=== PATIENT | female | born 1950 | race Caucasian/White ===

== ENCOUNTER 2018-10-20 16:26 | Outpatient (CLI) | payer OTHER ==
--- NOTE | 2018-10-20 17:12 | RAD ---
CHEST TWO VIEW 10/20/18 HISTORY: Bronchitis. COMPARISON: Radiograph 03/12/14. FINDINGS: The lungs are clear. No pneumothorax or effusion. The cardiac silhouette and mediastinal contours are within normal limits. IMPRESSION: No acute intrathoracic abnormality. POS: [facility]
== END 2018-10-20 16:27 | disposition home or self-care (01) ==
LOC: BICRAD 16:26
PROVIDERS: ATTEND Family Medicine
DX: J40 Bronchitis, not specified as acute or chronic (principal)
CPT/HCPCS: 71046

== ENCOUNTER 2020-01-31 07:38 | Inpatient (IN) | payer MEDICARE ==
[2020-01-31] MEDS ORDERED: Aspirin Chewable 81 MG TAB ONE (07:56)
[2020-01-31] MEDS ORDERED: Nitroglycerin 0.4 MG TAB 1 EACH ONE (07:56)
[2020-01-31] MEDS ORDERED: Heparin 25,000 units/D5W 500 ML ONE (08:00)
[2020-01-31] MEDS ORDERED: Heparin 1,000 UNITS/ML VIAL ONE (08:00)
[2020-01-31] MEDS ORDERED: Heparin 10,000 UNITS/1 ML VIAL ONE (08:01)
[2020-01-31 08:11] LABS: #Basophils 0.1 thou/uL (0.0-0.2); #Eosinphils 0.5 thou/uL (0.0-0.7); #Lymphocytes 3.2 thou/uL (1.20-3.40); #Monocytes 0.7 thou/uL (0.11-0.59); #Neutrophils 5.8 thou/uL (1.40-6.50); %Basophils 1.1 % (0.0-1.0); %Eosinophils 4.9 % (0.0-10.0); %Monocytes 6.9 % (0.0-10.0); %Neutrophils 56.1 % (42.0-75.0); Hemoglobin 13.8 g/dL (12.0-16.0); Mean Corpuscular HGB CONC 31.5 g/dL (32.0-36.0); Mean Corpuscular Hemoglobin 28.7 pg (27.0-31.0); Mean Corpuscular Volume 90.9 fL (78.0-98.0); Mean Platelet Volume 8.9 fL (7.4-10.4); Platelet Count 300 thou/uL (130-400); RBC Distribution Width 11.6 % (11.5-14.5); White Blood Cell (WBC) Count 10.2 thou/uL (4.8-10.8)
--- NOTE | 2020-01-31 08:17 | RAD ---
CHEST 1 VIEW: Date: 01/31/2020 HISTORY: Chest pain. COMPARISON: None. FINDINGS: Lungs are clear. No pneumothorax or effusion. Cardiac silhouette and mediastinal contours are within normal limits. No acute osseous abnormality. There is increased cardiophrenic fat bilaterally. IMPRESSION: No acute intrathoracic abnormality. POS: [facility]
[2020-01-31] MEDS ORDERED: Midazolam HCl 2 mg/2 ml Vial ONE (08:32)
[2020-01-31] MEDS ORDERED: Fentanyl 100 MCG/2 ML VIAL ONE (08:32)
[2020-01-31 08:37] LABS: ALT (SGPT) 30 U/L (8-55); AST (SGOT) 31 U/L (5-34); Albumin 3.8 g/dL (3.4-4.8); Alkaline Phosphatase 128 U/L (40-110); Anion Gap 13 mmol/L (10-20); BUN (Urea Nitrogen) 18 mg/dL (9.8-20.1); Bilirubin, Total 0.3 mg/dL (0.2-1.2); Calc. Creatinine Clearance 0 mL/min (70-130); Calcium 9.2 mg/dL (7.8-10.44); Carbon Dioxide 27 mmol/L (23-31); Chloride 102 mmol/L (98-107); Estimated GFR-MDRD 81; Globulin 3.1 g/dL (2.4-3.5); Glucose 130 mg/dL (83-110); Lipase 31 U/L (8-78); Potassium 3.3 mmol/L (3.5-5.1); Protein, Total 6.9 g/dL (6.0-8.3); Sodium 139 mmol/L (136-145)
[2020-01-31] MEDS ORDERED: Adenosine 6 MG/2 ML VIAL ONE (08:39)
[2020-01-31] MEDS ORDERED: Nitroglycerin 100MG/250ML BOT 250 ML ONE ×2 (08:39→08:42)
[2020-01-31] MEDS ORDERED: Verapamil 5 MG/2 ML VIAL ONE (08:39)
[2020-01-31] MEDS ORDERED: Iopamidol 370 76% 100 ML VIAL ONE (08:48)
[2020-01-31] MEDS ORDERED: Iopamidol 370 76% 50 ML VIAL FS ONE (08:48)
[2020-01-31] MEDS ORDERED: Albumin 5% 500 ML ONE (09:01)
[2020-01-31] MEDS ORDERED: Fentanyl 250 MCG/5 ML VIAL ONE ×2 (09:06)
[2020-01-31] MEDS ORDERED: Midazolam HCl 5 mg/5 ml Vial ONE (09:07)
[2020-01-31 09:10] LABS: CKMB 7.8 ng/mL (0-6.6)
[2020-01-31] MEDS ORDERED: Heparin 10,000 UNITS/1 ML VIAL 30,000 UNITS in Sodium Chloride 0.9% 1,000 ML FS SCH (09:15)
[2020-01-31] MEDS ORDERED: Lidocaine 2% PF 5 ML VIAL ONE (09:16)
[2020-01-31] MEDS ORDERED: Aminocaproic Acid 5 GM/20 ML VIAL ONE (09:16)
[2020-01-31] MEDS ORDERED: Sodium Bicarb 50 MEQ/50 ML Abboject 8.4% SYRINGE ONE (09:16)
[2020-01-31] MEDS ORDERED: Vecuronium 10 MG VIAL ONE (09:16)
[2020-01-31] MEDS ORDERED: Cardioplegic Soln 1,000 ML BAG ONE (09:16)
[2020-01-31] MEDS ORDERED: Thrombin 5000 UNITS/5 ML VIAL ONE (09:16)
[2020-01-31] MEDS ORDERED: Heparin 5,000 UNITS/ML VIAL ONE (09:16)
[2020-01-31] MEDS ORDERED: Magnesium Sulfate 1 GM/2 ML VIAL ONE (09:16)
[2020-01-31] MEDS ORDERED: Heparin 30,000 units/30 ml VIAL ONE (09:16)
[2020-01-31] MEDS ORDERED: Potassium Chloride 60 MEQ/30 ML VIAL ONE (09:16)
[2020-01-31] MEDS ORDERED: Rocuronium Bromide 10 MG/ML (10ML VIAL) ONE (09:16)
[2020-01-31] MEDS ORDERED: Calcium Chloride 1 GM/10 ML Abboject SYRINGE ONE (09:16)
[2020-01-31] MEDS ORDERED: Papaverine 60 MG/2 ML VIAL ONE (09:16)
[2020-01-31] MEDS ORDERED: PROPOFOL 200 MG/20 ML VIAL ONE (09:16)
[2020-01-31] MEDS ORDERED: Protamine Sulfate 250 MG/25 ML VIAL ONE (09:16)
[2020-01-31] MEDS ORDERED: Norepinephrine 4 MG/4 ML VIAL ONE (09:25)
[2020-01-31] MEDS ORDERED: Nitroglycerin 50 MG/250 ML BOT 250 ML ONE (09:25)
[2020-01-31] MEDS ORDERED: Ketamine 50 MG/ML (10ML VIAL) ONE (09:34)
--- NOTE | 2020-01-31 09:36 | CON ---
DATE OF CONSULTATION: 01/31/2020 CHIEF COMPLAINT: Chest pain, acute myocardial infarction. HISTORY OF PRESENT ILLNESS: Ms. Antonio is a very pleasant 69-year-old woman with no previous cardiac history, who recently presented with chest pressure, neck and jaw pain. This began this morning. She states she did not feel right. She presented to the emergency room where she was found to have ST-segment elevation noted inferiorly. PAST MEDICAL HISTORY: Osteoarthritis. ALLERGIES: CIPRO. MEDICATIONS: None. SOCIAL HISTORY: She is currently . REVIEW OF SYSTEMS: A 10-point review of systems is reviewed and is as above, otherwise negative. PHYSICAL EXAMINATION: GENERAL: Patient is a pleasant female who is in no acute distress. The patient appears their stated age. VITAL SIGNS: Blood pressure 110/70, pulse 80, and respirations 20. NEUROLOGIC: The patient is alert and oriented x3 with no focal neurologic deficits. HEENT: Sclerae without icterus. Mouth has moist mucous membranes with normal pallor. NECK: No JVD. Carotid upstroke brisk. No bruits bilaterally. LUNGS: Clear to auscultation with unlabored respirations. BACK: No scoliosis or kyphosis. CARDIAC: Regular rate and rhythm with normal S1 and S2. No S3 or S4 noted. No significant rubs, murmurs, thrills, or gallops noted throughout the precordium. PMI is not displaced. There is no parasternal heave. ABDOMEN: Soft, nontender, nondistended. No peritoneal signs present. No hepatosplenomegaly. No abnormal striae. EXTREMITIES: 2+ femoral and 2+ dorsalis pedis pulses. No cyanosis, clubbing, or edema. SKIN: No gross abnormalities. PERTINENT LABS: Pending. DIAGNOSTIC STUDIES: EKG shows normal sinus rhythm, ST-segment elevation noted inferiorly. IMPRESSION: Acute myocardial infarction. RECOMMENDATIONS: At this point, we recommend urgent coronary angiography plus PCI. I discussed procedure in full detail with Ms. Antonio. Risks included not limited to the following: I discussed the procedure in full detail with the patient. The risks of the procedure were also discussed. The risks of the procedure include but are not limited to the following: , stroke, [place], need for emergency surgery, loss of limb, bleeding, and infection, as well as a reaction to the dye causing kidney failure and needing long-term dialysis. I also discussed the risks of PCI to include all of the above including coronary dissection and perforation in addition to acute stent thrombosis and restenosis. All questions about the procedure were answered. Given the above, the patient agreed to proceed with coronary angiography and possible PCI. Also, discussed drug coated versus nondrug-coated stent placement. She prefers drug-coated stent placement despite may be needing any surgery later in the year. The patient was continued to have mild discomfort. Further recommendations pending the above. Job ID: [id number]
--- NOTE | 2020-01-31 09:47 | CON ---
DATE OF CONSULTATION: 01/31/2020 HISTORY OF PRESENT ILLNESS: This is a 69-year-old female who began experiencing some neck and chest pressure earlier this morning, associated with shortness of breath. She used her inhaler due to history of asthma. However, she has continued to feel a pressure in her chest and presented to the emergency room. In the emergency room, she was noted to have some inferior ST elevation with a troponin of 0.26 and was taken to the clay processing labourer where she was found to have a subtotal right coronary occlusion with slow flow, an ostial 80% LAD lesion and severe circumflex disease. PAST MEDICAL HISTORY: Includes hypertension. She denies dyslipidemia, although has had cholesterol elevations as high as 280 last year. PAST SURGICAL HISTORY: Includes left knee surgery, bilateral wrist surgeries, and breast biopsy. Additional surgical procedures; remote urethral dilation, cystoscopy, tonsillectomy, , and hysterectomy. SOCIAL HISTORY: She is a retired teacher. She is . She is a nonsmoker. MEDICATIONS: Include: 1. Prilosec 20 a day inhaler. 2. Amlodipine 5 a day. 3. Amitriptyline 25 to 50 mg nightly. ALLERGIES: TO CIPRO AND BACTRIM. PHYSICAL EXAMINATION: GENERAL: Alert, cooperative lady, in no distress. VITAL SIGNS: She has a blood pressure of 140, heart rate of 80. She appears overweight. NECK: No carotid bruits. LUNGS: Clear to auscultation. CARDIAC: No murmurs. Irregular rhythm. ABDOMEN: Obese, nontender. EXTREMITIES: Noted no obesity with palpable pedal and radial pulses. PLAN: At this time, for emergency CAB to the right coronary artery, circumflex, LAD, and possibly diagonal. I have spoken with the patient and and informed consent has been obtained. Job ID: [id number]
[2020-01-31] MEDS ORDERED: Insulin Regular 300 UNITS/3 ML VIAL ONE (10:22)
[2020-01-31] MEDS ORDERED: Dexmedetomidine 200 MCG/2 ML VIAL ONE (11:17)
[2020-01-31] MEDS ORDERED: Morphine 2 MG/ML SYRINGE SLOW IVP PRN (14:07)
[2020-01-31] MEDS ORDERED: Nitroglycerin 50 MG/250 ML BOT 250 ML IVPB PRN (14:07)
[2020-01-31] MEDS ORDERED: niCARdipine 25 MG in Sodium Chloride 0.9% 250 ML 240 ML IVPB PRN (14:07)
[2020-01-31] MEDS ORDERED: Bisacodyl 5 MG TAB PO PRN (14:07)
[2020-01-31] MEDS ORDERED: Hetastarch 6% 500 ML 500 ML IVPB PRN (14:07)
[2020-01-31] MEDS ORDERED: DOPamine 400 MG/D5W 250 ML 250 ML IVPB PRN (14:07)
[2020-01-31] MEDS ORDERED: Fentanyl 100 MCG/2 ML VIAL SLOW IVP PRN ×2 (14:07)
[2020-01-31] MEDS ORDERED: Mag-Al 1200 mg/1200 mg/30 ML UDCUP PO PRN (14:07)
[2020-01-31] MEDS ORDERED: Ondansetron PF 4 MG/2 ML Vial IVP PRN (14:07)
[2020-01-31] MEDS ORDERED: Guaifenesin DM 100-10/5 ML UDCUP PO PRN (14:07)
[2020-01-31] MEDS ORDERED: Post-Op Insulin Drip Protocol IVPB ONE (14:07)
[2020-01-31] MEDS ORDERED: Acetaminophen 325 MG TAB PO PRN (14:07)
[2020-01-31] MEDS ORDERED: Norepinephrine 8 MG/0.9% NS 250 ML IVPB PRN (14:07)
[2020-01-31] MEDS ORDERED: hydrALAZINE 20 MG/ML VIAL SLOW IVP PRN (14:07)
[2020-01-31] MEDS ORDERED: Bisacodyl 10 MG SUPP PR PRN (14:07)
[2020-01-31] MEDS ORDERED: Promethazine HCl 25 MG/ML VIAL IM PRN (14:07)
[2020-01-31] MEDS ORDERED: Dextrose 50% Abboject 50 ML SYRINGE SLOW IVP PRN (14:15)
[2020-01-31] MEDS ORDERED: Insulin Regular 300 UNITS/3 ML VIAL SC PRN (14:15)
[2020-01-31] MEDS ORDERED: HUMULIN R 100 UNITS in Sodium Chloride 0.9% 100 ML IVPB SCH (14:15)
[2020-01-31] MEDS ORDERED: Dextrose 5% in Water 1,000 ML IV PRN (14:15)
[2020-01-31 14:30] LABS: Actual Bicarbonate (HCO3a) 19.2 mEq/L (22-28); Base Excess (BEa) -4.8 mEq/L (-2.0 to +3.0); CO2 Tension 32.2 mmHg (35.0-45.0); Calcium, Ionized 1.15 mmol/L (1.12-1.30); Carboxyhemoglobin (COHb) 0.2 gm% (0.0-3.0); Hemoglobin (Hb) 11.6 g/dL (12.0-16.0); O2 Tension (PaO2) 88.2 mmHg (> 70.0); Potassium - ABG Lab 3.84 mmol/L (3.70-5.30); pH, Arterial 7.39 (7.35-7.45)
[2020-01-31] MEDS ORDERED: Magnesium 2 GM/50 ML 2 GM in Premix Bag 1 BAG IVPB SCH (14:30)
[2020-01-31 14:31] LABS: Puncture Site ALINE
[2020-01-31] MEDS: Sodium Chloride 0.9% 1,000 ML IV SCH ×2 (14:37→23:01)
[2020-01-31 14:41] LABS: Hemoglobin 11.3 g/dL (12.0-16.0); Mean Corpuscular HGB CONC 32.8 g/dL (32.0-36.0); Mean Corpuscular Volume 91.3 fL (78.0-98.0); Mean Platelet Volume 8.9 fL (7.4-10.4); Platelet Count 190 thou/uL (130-400); RBC Distribution Width 11.6 % (11.5-14.5); Red Blood Cell (RBC) Count 3.76 mill/uL (4.20-5.40); White Blood Cell (WBC) Count 22.2 thou/uL (4.8-10.8)
[2020-01-31 14:47] LABS: INR-International Normal Ratio 1.2; PTT 29.5 SEC (22.9-36.1); Prothrombin Time 15.3 SEC (12.0-14.7)
[2020-01-31 14:54] LABS: Band 17 % (5-11); Eosinophils 1 % (0-10); Lymphocytes 12 % (21-51); MDiff Complete? YES; Monocytes 2 % (0-10); Neutrophil 68 % (42-75); Platelet Morphology Comment Appears Adequate; RBC Morphology Normal
[2020-01-31 15:11] LABS: Anion Gap 10 mmol/L (10-20); BUN (Urea Nitrogen) 13 mg/dL (9.8-20.1); Calc. Creatinine Clearance 0 mL/min (70-130); Calcium 7.8 mg/dL (7.8-10.44); Carbon Dioxide 22 mmol/L (23-31); Chloride 110 mmol/L (98-107); Estimated GFR-MDRD Greater than 90; Glucose 167 mg/dL (83-110); Potassium 3.9 mmol/L (3.5-5.1); Sodium 138 mmol/L (136-145)
--- NOTE | 2020-01-31 15:39 | RAD ---
PORTABLE CHEST 1 VIEW: DATE: 01/31/2020. TIME: 2:26 PM. HISTORY: Respiratory failure, post open heart surgery. COMPARISON: Earlier exam of 7:57 a.m. from the same date. FINDINGS/IMPRESSION: Interval changes of median sternotomy are seen. There is an endotracheal tube with tip just below th e level of the clavicular heads. A right subclavian central line has been placed with tip in the pro jection of the right atrium. Mediastinal drain has been placed. The heart size is stable. No lobar consolidation, pneumothoraces, simona pulmonary edema, or large effusions are seen. POS: [facility]
[2020-01-31] MEDS: Potassium Chloride 20 MEQ/100 ML PREMIX BAG IVPB PRN (16:08)
[2020-01-31] MEDS ORDERED: Norepinephrine 8 MG in Dextrose 5% in Water 242 ML IVPB PRN (17:16)
[2020-01-31] MEDS: CEFAZOLIN 2 GM in Premix Bag 1 BAG IVPB SCH (17:53)
[2020-01-31] MEDS: Ketorolac Tromethamine 30 MG/ML VIAL IVP SCH ×2 (17:54→23:02)
[2020-01-31 20:09] LABS: Hemoglobin 12.3 g/dL (12.0-16.0)
[2020-01-31 20:23] LABS: Potassium 4.2 mmol/L (3.5-5.1)
[2020-01-31] MEDS ORDERED: Famotidine/PF 20 mg/2ml Vial SLOW IVP SCH (21:00)
[2020-01-31] MEDS ORDERED: Simvastatin 20 MG TAB PO SCH (21:00)
[2020-02-01] MEDS: CEFAZOLIN 2 GM in Premix Bag 1 BAG IVPB SCH (02:09)
[2020-02-01 03:31] LABS: #Basophils 0.1 thou/uL (0.0-0.2); #Monocytes 1.3 thou/uL (0.11-0.59); #Neutrophils 12.5 thou/uL (1.40-6.50); %Basophils 0.4 % (0.0-1.0); %Eosinophils 0.1 % (0.0-10.0); %Lymphocytes 12.5 % (21.0-51.0); %Monocytes 8.1 % (0.0-10.0); %Neutrophils 78.8 % (42.0-75.0); Hemoglobin 10.6 g/dL (12.0-16.0); Mean Corpuscular HGB CONC 33.3 g/dL (32.0-36.0); Mean Corpuscular Hemoglobin 30.5 pg (27.0-31.0); Mean Corpuscular Volume 91.5 fL (78.0-98.0); Mean Platelet Volume 9.2 fL (7.4-10.4); Platelet Count 214 thou/uL (130-400); RBC Distribution Width 11.7 % (11.5-14.5); Red Blood Cell (RBC) Count 3.48 mill/uL (4.20-5.40); White Blood Cell (WBC) Count 15.9 thou/uL (4.8-10.8)
[2020-02-01 03:50] LABS: Anion Gap 13 mmol/L (10-20); BUN (Urea Nitrogen) 15 mg/dL (9.8-20.1); Calc. Creatinine Clearance 84 mL/min (70-130); Carbon Dioxide 22 mmol/L (23-31); Chloride 110 mmol/L (98-107); Estimated GFR-MDRD 81; Glucose 133 mg/dL (83-110); Potassium 3.8 mmol/L (3.5-5.1); Sodium 141 mmol/L (136-145)
[2020-02-01] MEDS: Ketorolac Tromethamine 30 MG/ML VIAL IVP SCH ×3 (05:07→18:29)
[2020-02-01] MEDS: HYDROcodone/Acetaminophen 5/325 mg Tablet PO PRN ×2 (05:09→15:50)
[2020-02-01] MEDS: Potassium Chloride 20 MEQ/100 ML PREMIX BAG IVPB PRN (05:13)
--- NOTE | 2020-02-01 07:11 | PRG ---
DATE OF SERVICE: 02/01/2020 The patient overnight was stable on no infusions with blood pressure running anywhere from 95 to 125, heart rate is 90 and sinus rhythm. Chest tube output is about 240 mL since surgery. Her chest x-ray shows a left effusion, small. Laboratory values; creatinine is 0.71, her hemoglobin is 10.6 and her platelet count is 214,000. She is sitting in a chair this morning and concerned about her allergies. Her lungs are clear to auscultation bilaterally. At this time, the patient appears to be doing well and we will start statin therapy and low-dose beta-marlon will be added depending on her blood pressure status. I have ordered Claritin and Prilosec at her request for her symptomatic allergies. I have also discussed the need to begin physical therapy today and she reminds me that she does use a cane due to arthritis in her legs. Job ID: [id number]
--- NOTE | 2020-02-01 07:16 | OP ---
DATE OF PROCEDURE: 01/31/2020 PREOPERATIVE DIAGNOSIS: Coronary artery disease status post acute myocardial infarction. PROCEDURES PERFORMED: Emergency coronary artery bypass graft x3; good quality saphenous vein to a 1.5 mm main right coronary artery distally, good quality saphenous vein to a 1.25 mm OM3, good quality left internal mammary artery to a 1.5 mm LAD. DIRECTOR OF CORPORATE RESPONSIBILITY: Genaro Casillas MD TRANSFUSION: None. DESCRIPTION OF PROCEDURE: After adequate anesthesia had been obtained, the patient was prepped and draped. I did an endovascular vein harvest of the right greater saphenous vein and after it was prepared, it was not felt that there was a long enough usable segment to do grafts. For this reason, an open harvest on the left thigh was performed. Following this, I performed a median sternotomy harvesting the left internal mammary artery without entering the pleura. The patient was heparinized and mammary divided distally and passed posterior to the thymus gland. Aorta was somewhat enlarged and after aortic and right atrial cannulation, the patient was placed on cardiopulmonary bypass. The vessels were inspected for grafting. The aorta was crossclamped and a liter of cold blood cardioplegia was given through the aortic root. Right coronary distal anastomosis was completed, passing a 1.5 mm probe prior to tying the suture line. The OM3 was opened and an end-to-side anastomosis completed here. Following which, the LAD was opened proximally and the left internal mammary artery anastomosed here. The cross-clamp was removed and the partial occluding clamp placed, and 2 vein anastomoses were performed on the aortic root and marked with rings. The patient was then weaned from cardiopulmonary bypass. Cannulas were removed and protamine was given systemically. Mediastinal drains x2 were placed following which the sternum was reapproximated with #7 interrupted wire using vancomycin paste on the sternal edges, platelet rich blood and platelet poor plasma. Subcutaneous tissue and skin were closed in layers. Job ID: [id number]
[2020-02-01] MEDS ORDERED: Ondansetron PF 4 MG/2 ML Vial IVP PRN (07:43)
[2020-02-01] MEDS ORDERED: Nitroglycerin 0.4 MG TAB (25 Tab Bottle) SL PRN (07:43)
[2020-02-01] MEDS ORDERED: Mag-Al 1200 mg/1200 mg/30 ML UDCUP PO PRN (07:43)
[2020-02-01] MEDS ORDERED: Bisacodyl 5 MG TAB PO PRN (07:43)
[2020-02-01] MEDS ORDERED: Mineral Oil ENEMA PR PRN (07:43)
[2020-02-01] MEDS ORDERED: Guaifenesin DM 100-10/5 ML UDCUP PO PRN (07:43)
[2020-02-01] MEDS ORDERED: Bisacodyl 10 MG SUPP PR PRN (07:43)
[2020-02-01] MEDS ORDERED: Milk Of Magnesia 30 ML UDCUP PO PRN (07:43)
--- NOTE | 2020-02-01 08:56 | RAD ---
PORTABLE CHEST: DATE: 02/01/2020. PROVIDED CLINICAL HISTORY: Post open heart. FINDINGS: Comparison 01/31/2020. Interval extubation. Additional significant interval change with respect to t he prior examination is not apparent. IMPRESSION: As above. POS: [facility]
[2020-02-01] MEDS ORDERED: Fluticasone Propionate HFA 110 MCG AER INH SCH (09:00)
[2020-02-01] MEDS ORDERED: Aspirin 325 MG TAB PO SCH (09:00)
[2020-02-01] MEDS: Aspirin 325 mg Enteric Coated Tablet PO SCH (09:49)
[2020-02-01] MEDS: Polyethylene Glycol 3350 17 GM Packet PO SCH ×2 (09:49→10:01)
[2020-02-01] MEDS: Mometasone 100 MCG/PUFF (1 INHALER) INH SCH ×3 (09:50→19:30)
--- NOTE | 2020-02-01 14:09 | PRG ---
DATE OF SERVICE: 02/01/2020 SUBJECTIVE: Ms. Antonio is doing very well. She is seen post bypass. She is extubated, sitting up in a chair. No current complaints except for a chest soreness. OBJECTIVE: VITAL SIGNS: Blood pressure 127/60, pulse 81, and temperature 98.4. LUNGS: Clear to auscultation. HEART: Regular rate and rhythm. ABDOMEN: Soft, nontender, nondistended. EXTREMITIES: No edema. PERTINENT LABORATORY DATA: Hemoglobin 10.6. Creatinine 0.71, chloride 110, CO2 22. IMPRESSION: 1. Acute myocardial infarction. 2. Severe coronary artery disease. 3. Status post bypass surgery. RECOMMENDATIONS: 1. Incentive spirometer and physical therapy. 2. Continue aspirin. 3. Add low-dose beta-marlon therapy and statin therapy. Job ID: [id number]
--- NOTE | 2020-02-01 16:03 | EKG ---
Test Reason : POST CABG Blood Pressure : / mmHG Vent. Rate : 076 BPM Atrial Rate : 076 BPM P-R Int : 220 ms QRS Dur : 076 ms QT Int : 492 ms P-R-T Axes : 046 -16 010 degrees QTc Int : 553 ms Sinus rhythm with 1st degree A-V block Low voltage QRS Prolonged QT Abnormal ECG Confirmed by HENRRY BROWN ([id number]) on 02/01/2020 4:03:08 PM Referred By: RICHARD Confirmed By:HENRRY BROWN
[2020-02-01] MEDS: Amitriptyline HCl 100 MG TAB PO SCH (22:02)
[2020-02-01] MEDS: Metoprolol Tartrate 25 MG TAB PO SCH (22:03)
[2020-02-01] MEDS: Atorvastatin Calcium 10 MG TAB PO SCH (22:04)
[2020-02-01] MEDS: Sodium Chloride 0.9% 10 ML ONE ×2 (22:04→22:05)
[2020-02-02] MEDS ORDERED: Sodium Chloride 0.9% 10 ML ONE ×2 (00:11→05:41)
[2020-02-02] MEDS: Ketorolac Tromethamine 30 MG/ML VIAL IVP SCH ×5 (00:15→23:37)
[2020-02-02 05:40] LABS: #Eosinphils 0.3 thou/uL (0.0-0.7); #Lymphocytes 2.2 thou/uL (1.20-3.40); #Monocytes 1.1 thou/uL (0.11-0.59); #Neutrophils 5.3 thou/uL (1.40-6.50); %Basophils 0.3 % (0.0-1.0); %Eosinophils 3.1 % (0.0-10.0); %Lymphocytes 24.6 % (21.0-51.0); %Monocytes 12.2 % (0.0-10.0); %Neutrophils 59.8 % (42.0-75.0); Hemoglobin 9.6 g/dL (12.0-16.0); Mean Corpuscular HGB CONC 33.2 g/dL (32.0-36.0); Mean Corpuscular Hemoglobin 30.6 pg (27.0-31.0); Mean Platelet Volume 9.8 fL (7.4-10.4); Platelet Count 175 thou/uL (130-400); Red Blood Cell (RBC) Count 3.15 mill/uL (4.20-5.40); White Blood Cell (WBC) Count 8.9 thou/uL (4.8-10.8)
[2020-02-02 05:56] LABS: Anion Gap 11 mmol/L (10-20); BUN (Urea Nitrogen) 16 mg/dL (9.8-20.1); Calc. Creatinine Clearance 95 mL/min (70-130); Calcium 8.3 mg/dL (7.8-10.44); Carbon Dioxide 23 mmol/L (23-31); Chloride 107 mmol/L (98-107); Estimated GFR-MDRD Greater than 90; Glucose 115 mg/dL (83-110); Sodium 137 mmol/L (136-145)
[2020-02-02] MEDS: Mometasone 100 MCG/PUFF (1 INHALER) INH SCH ×2 (06:38→18:57)
[2020-02-02] MEDS: Metoprolol Tartrate 25 MG TAB PO SCH (09:38)
[2020-02-02] MEDS: Polyethylene Glycol 3350 17 GM Packet PO SCH (09:39)
[2020-02-02] MEDS: Furosemide 40 MG TAB PO SCH (09:39)
[2020-02-02] MEDS: Aspirin 325 mg Enteric Coated Tablet PO SCH (09:39)
[2020-02-02] MEDS ORDERED: Amiodarone 150 MG in Dextrose 5% in Water 100 ML IVPB SCH (10:15)
[2020-02-02] MEDS ORDERED: Amiodarone 450 MG in Dextrose 5% in Water 250 ML IVPB SCH (10:15)
[2020-02-02] MEDS: Loratadine 10 MG TAB PO PRN ×2 (10:32→22:20)
[2020-02-02] MEDS ORDERED: Amiodarone 200 MG TAB PO SCH (12:00)
[2020-02-02] MEDS: Amitriptyline HCl 100 MG TAB PO SCH (22:19)
[2020-02-02] MEDS: Amiodarone 200 MG TAB PO SCH (22:19)
[2020-02-02] MEDS: Atorvastatin Calcium 10 MG TAB PO SCH (22:20)
[2020-02-03] MEDS: Ketorolac Tromethamine 30 MG/ML VIAL IVP SCH ×3 (06:09→17:40)
[2020-02-03] MEDS: Aspirin 325 mg Enteric Coated Tablet PO SCH (07:35)
[2020-02-03] MEDS: Amiodarone 200 MG TAB PO SCH ×2 (07:35→20:38)
[2020-02-03] MEDS: Furosemide 40 MG TAB PO SCH (07:36)
[2020-02-03] MEDS: Meloxicam 15 MG TAB PO SCH (07:36)
[2020-02-03] MEDS: Polyethylene Glycol 3350 17 GM Packet PO SCH (07:37)
[2020-02-03] MEDS: Mometasone 100 MCG/PUFF (1 INHALER) INH SCH ×2 (07:38→20:02)
[2020-02-03] MEDS: Loratadine 10 MG TAB PO PRN ×2 (15:22→22:46)
[2020-02-03] MEDS: Atorvastatin Calcium 10 MG TAB PO SCH (20:38)
[2020-02-03] MEDS: HYDROcodone/Acetaminophen 5/325 mg Tablet PO PRN (22:46)
[2020-02-04] MEDS: Mometasone 100 MCG/PUFF (1 INHALER) INH SCH ×2 (06:59→19:09)
[2020-02-04] MEDS: Meloxicam 15 MG TAB PO SCH (09:14)
[2020-02-04] MEDS: Aspirin 325 mg Enteric Coated Tablet PO SCH (09:14)
[2020-02-04] MEDS: Amiodarone 200 MG TAB PO SCH ×2 (09:14→20:31)
[2020-02-04] MEDS: HYDROcodone/Acetaminophen 5/325 mg Tablet PO PRN ×2 (09:15→20:30)
[2020-02-04] MEDS: Loratadine 10 MG TAB PO PRN ×2 (09:15→20:30)
[2020-02-04] MEDS: Furosemide 40 MG TAB PO SCH (09:16)
[2020-02-04] MEDS: Polyethylene Glycol 3350 17 GM Packet PO SCH (09:16)
--- NOTE | 2020-02-04 18:38 | PRG ---
DATE OF SERVICE: 02/04/2020 SUBJECTIVE: Ms. Antonio is doing well. No current complaints. She is slowly ambulating. She is using incentive spirometry. OBJECTIVE: VITAL SIGNS: Blood pressure 126/60, pulse 97, temperature 98.5. LUNGS: Clear to auscultation. HEART: Regular rate and rhythm. ABDOMEN: Soft, nontender, nondistended. EXTREMITIES: No edema. PERTINENT LABORATORY DATA: Hemoglobin 9.6. IMPRESSION: 1. Acute myocardial infarction. 2. Severe coronary artery disease. 3. Status post bypass surgery. RECOMMENDATIONS: 1. Incentive spirometry and physical therapy. 2. Amiodarone 400 mg p.o. b.i.d. and we will reduce to 400 mg subcu q.a.m. 3. Add low-dose beta-marlon therapy. 4. On atorvastatin and aspirin. Job ID: [id number]
[2020-02-04] MEDS: Atorvastatin Calcium 10 MG TAB PO SCH (20:31)
[2020-02-05] MEDS: HYDROcodone/Acetaminophen 5/325 mg Tablet PO PRN ×2 (04:04→09:22)
[2020-02-05] MEDS: Mometasone 100 MCG/PUFF (1 INHALER) INH SCH (07:04)
[2020-02-05] MEDS: Meloxicam 15 MG TAB PO SCH (09:20)
[2020-02-05] MEDS: Aspirin 325 mg Enteric Coated Tablet PO SCH (09:20)
[2020-02-05] MEDS: Polyethylene Glycol 3350 17 GM Packet PO SCH (09:20)
[2020-02-05] MEDS: Furosemide 40 MG TAB PO SCH (09:20)
[2020-02-05] MEDS: Amiodarone 200 MG TAB PO SCH (09:21)
[2020-02-05] MEDS: Loratadine 10 MG TAB PO PRN (09:23)
[2020-02-05 11:37] VITALS: BP 137/84; TEMP 98.4
--- NOTE | 2020-02-05 15:23 | PRG ---
DATE OF SERVICE: 02/05/2020 SUBJECTIVE: Ms. Antonio is doing well. No current complaints. She is ready for discharge. OBJECTIVE: VITAL SIGNS: Blood pressure 137/54, pulse 86, and temperature 98.4 LUNGS: Clear to auscultation. HEART: Regular rate and rhythm. ABDOMEN: Soft, nontender, nondistended. EXTREMITIES: No edema. IMPRESSION: 1. Acute myocardial infarction. 2. Status post bypass surgery. RECOMMENDATIONS: Ms. Antonio did have a brief episode of atrial fibrillation and multifocal atrial tachycardia during her hospitalization after bypass. I would recommend 400 mg amiodarone x1 month only. We will also recommend a 3-week event recorder to assess for dysrhythmias. We will also add low-dose Toprol-XL 25 mg one p.o. q.h.s. Continue aspirin and statin therapy. Plan is to follow up with Ms. Antonio in the next one week as a telemedicine visit. Job ID: [id number]
[2020-02-06 01:12] LABS: Analyzer IN Cardio OR; Base Excess (BEa) -2.8 mEq/L (-2.0 to +3.0); CO2 Tension 38.4 mmHg (35.0-45.0); Calcium, Ionized 1.11 mmol/L (1.12-1.30); Carboxyhemoglobin (COHb) 0.3 gm% (0.0-3.0); Hemoglobin (Hb) 12.5 g/dL (12.0-16.0); O2 Tension (PaO2) 204.4 mmHg (> 70.0); Potassium - ABG Lab 3.31 mmol/L (3.70-5.30); pH, Arterial 7.38 (7.35-7.45)
[2020-02-06 01:12] LABS: Actual Bicarbonate (HCO3a) 22.8 mEq/L (22-28); Analyzer IN Cardio OR; Base Excess (BEa) -0.7 mEq/L (-2.0 to +3.0); CO2 Tension 34.1 mmHg (35.0-45.0); Calcium, Ionized 1.12 mmol/L (1.12-1.30); Carboxyhemoglobin (COHb) 0.4 gm% (0.0-3.0); Hemoglobin (Hb) 13.4 g/dL (12.0-16.0); O2 Tension (PaO2) 205.2 mmHg (> 70.0); Potassium - ABG Lab 3.51 mmol/L (3.70-5.30); pH, Arterial 7.44 (7.35-7.45)
[2020-02-06 01:13] LABS: Actual Bicarbonate (HCO3a) 23.5 mEq/L (22-28); Analyzer IN Cardio OR; Base Excess (BEa) -1.5 mEq/L (-2.0 to +3.0); CO2 Tension 40.5 mmHg (35.0-45.0); Carboxyhemoglobin (COHb) 0.3 gm% (0.0-3.0); Hemoglobin (Hb) 8.2 g/dL (12.0-16.0); O2 Tension (PaO2) 397.9 mmHg (> 70.0); Potassium - ABG Lab 4.23 mmol/L (3.70-5.30); pH, Arterial 7.38 (7.35-7.45)
[2020-02-06 01:13] LABS: Actual Bicarbonate (HCO3v) 26 mEq/L (22-28); Analyzer IN Cardio OR; Base Excess 0.2 mEq/L (-2.0 to +3.0); Calcium, Ionized 0.97 mmol/L (1.16-1.32); Chloride (ABG LAB) 108 mmol/L (98-106); Hemoglobin (Hb) 8.2 g/dL (11.7-16.1); Potassium - ABG Lab 3.97 mmol/L (3.70-5.30); Sodium 135.6 mmol/L (133-146); pH (venous) 7.36 (7.32-7.43)
[2020-02-06 01:13] LABS: Actual Bicarbonate (HCO3a) 22.8 mEq/L (22-28); Analyzer IN Cardio OR; Base Excess (BEa) -0.8 mEq/L (-2.0 to +3.0); CO2 Tension 32.5 mmHg (35.0-45.0); Calcium, Ionized 1.18 mmol/L (1.12-1.30); Carboxyhemoglobin (COHb) 0.1 gm% (0.0-3.0); Hemoglobin (Hb) 7.8 g/dL (12.0-16.0); O2 Tension (PaO2) 419.8 mmHg (> 70.0); Potassium - ABG Lab 4.03 mmol/L (3.70-5.30); pH, Arterial 7.46 (7.35-7.45)
[2020-02-06 01:13] LABS: Actual Bicarbonate (HCO3a) 25.3 mEq/L (22-28); Analyzer IN Cardio OR; Base Excess (BEa) 0.8 mEq/L (-2.0 to +3.0); CO2 Tension 40.2 mmHg (35.0-45.0); Calcium, Ionized 0.99 mmol/L (1.12-1.30); Carboxyhemoglobin (COHb) 0.3 gm% (0.0-3.0); O2 Tension (PaO2) 463.7 mmHg (> 70.0); Potassium - ABG Lab 4.17 mmol/L (3.70-5.30); pH, Arterial 7.42 (7.35-7.45)
[2020-02-06 01:14] LABS: Puncture Site ALINE
[2020-02-06 01:14] LABS: Puncture Site ALINE
[2020-02-06 01:15] LABS: Puncture Site ALINE
[2020-02-06 01:15] LABS: Puncture Site ALINE
[2020-02-06 01:16] LABS: Puncture Site ALINE
--- NOTE | 2020-02-06 06:50 | DIS ---
DATE OF ADMISSION: 01/31/2020 DATE OF DISCHARGE: 02/05/2020 HOSPITAL COURSE: This is a 69-year-old female who presented to the hospital with an acute MD. She was taken emergently to the cardiac shrimp pond laborer by Dr. Paz, where she was found to have severe coronary disease, not amenable to stenting. The right coronary artery was subtotally occluded with slow flow and the LAD had a very proximal lesion. The patient was taken to the operating room emergently from the shrimp pond laborer where she underwent 3-vessel bypass grafting to the main right coronary artery distally and OM-3, which was a small vessel and an LAD with the mammary artery. She required an open vein harvest of the right groin and an endovascular vein harvest of the left greater saphenous vein to obtain suitable vein for two grafts with probably no suitable vein remaining. Postoperatively, she did have a short run of nonsustained ventricular tachycardia of about 15 beats in the ICU and then had a very short run of atrial fibrillation flutter postoperatively on day 2. She then remained in sinus rhythm with a good blood pressure. She will be discharged home on amiodarone 200 b.i.d. for 1 month and then switching to a low-dose beta marlon. She will also receive low-dose statin 10 mg a day, aspirin 1 a day. Her ambulation has not been much, but this was anticipated due to multiple musculoskeletal complaints prior to hospitalization. She will be discharged home to arrange for outpatient cardiac rehab. Her incisions are healing nicely. Her weight is about 164 which is higher than her stated weight of 155 on admission and so she will be also discharged on one week's worth of additional Lasix 40 mg a day. Discharge and followup instructions have been given. Job ID: [id number]
[2020-02-06] MEDS ORDERED: Amiodarone 200 MG TAB PO SCH (09:00)
== END 2020-02-05 15:50 | disposition home or self-care (01) | DRG 234 ==
LOC: ERS 07:38 → 2NO 08:14 → CCL 08:14 → CCU 14:06 → 2NO 02-01 08:46
PROVIDERS: ADMIT Internal Medicine Cardiovascular Disease; ATTEND Internal Medicine Cardiovascular Disease
PROC: 4A023N7 Measurement of Cardiac Sampling and Pressure, Left Heart, Percutaneous Approach (ICD-10-PCS; principal; 2020-01-31)
PROC: 02100Z9 Bypass Coronary Artery, One Artery from Left Internal Mammary, Open Approach (ICD-10-PCS; 2020-01-31)
PROC: 021109W Bypass Coronary Artery, Two Arteries from Aorta with Autologous Venous Tissue, Open Approach (ICD-10-PCS; 2020-01-31)
PROC: 06BQ4ZZ Excision of Left Saphenous Vein, Percutaneous Endoscopic Approach (ICD-10-PCS; 2020-01-31)
PROC: B2111ZZ Fluoroscopy of Multiple Coronary Arteries using Low Osmolar Contrast (ICD-10-PCS; 2020-01-31)
PROC: B2151ZZ Fluoroscopy of Left Heart using Low Osmolar Contrast (ICD-10-PCS; 2020-01-31)
PROC: 5A1221Z Performance of Cardiac Output, Continuous (ICD-10-PCS; 2020-01-31)
DX: I21.09 ST elevation (STEMI) myocardial infarction involving other coronary artery of anterior wall (principal); I10 Essential (primary) hypertension; I25.10 Atherosclerotic heart disease of native coronary artery without angina pectoris; I48.91 Unspecified atrial fibrillation; F41.9 Anxiety disorder, unspecified; E78.00 Pure hypercholesterolemia, unspecified; M19.90 Unspecified osteoarthritis, unspecified site; Z88.1 Allergy status to other antibiotic agents; Z79.01 Long term (current) use of anticoagulants; Z90.710 Acquired absence of both cervix and uterus; Z88.2 Allergy status to sulfonamides; Z88.8 Allergy status to other drugs, medicaments and biological substances
CPT/HCPCS: 36415; 36416; 71045; 76942; 80048; 80053; 82553; 82805; 83690; 83880; 84484; 85025; 85347; 85610; 85730; 86850; 86900; 86901; 93005; 93010; 93458; 93798; 94002; 94150; 96374; 96376; 99152; 99153; C1769; J0153; J0690; J1644; J1815; J1885; J2001; J2250; J2440; J2704; J2720; J3010; J3370; J3475; J3480; J7050; P9045; Q9967; S0017; S0028

== ENCOUNTER 2020-08-22 07:37 | Outpatient (CLI) | payer MEDICARE, OTHER ==
[2020-08-22 15:15] LABS: Hemoglobin 13.6 g/dL (12.0-16.0); Mean Corpuscular HGB CONC 31.3 G/DL (32.0-36.0); Mean Corpuscular Hemoglobin 29.4 PG (27.0-33.0); Mean Corpuscular Volume 94.2 fl (80.0-100.0); Mean Platelet Volume 10.9 fl (7.4-10.4); Platelet Count 334 10x3/uL (130-400); RBC Distribution Width 13.5 % (11.5-14.5); Red Blood Cell (RBC) Count 4.62 10x6/uL (3.90-5.20); White Blood Cell (WBC) Count 9.7 10x3/uL (4.5-11.0)
[2020-08-22 15:26] LABS: INR-International Normal Ratio 0.9; Prothrombin Time 9.9 sec (9.5-12.1)
[2020-08-22 15:35] LABS: Anion Gap 12 mmol/L (10-20); BUN (Urea Nitrogen) 16 mg/dL (9.8-20.1); Calc. Creatinine Clearance 0 mL/min (70-130); Calcium 9.2 mg/dL (7.8-10.44); Carbon Dioxide 29 mmol/L (23-31); Chloride 104 mmol/L (98-107); Glucose 112 mg/dL (83-110); Potassium 4.3 mmol/L (3.5-5.1); Sodium 141 mmol/L (136-145)
== END 2020-08-22 07:38 | disposition home or self-care (01) ==
LOC: LABBT 07:37
PROVIDERS: ATTEND Orthopaedic Surgery
DX: Z01.818 Encounter for other preprocedural examination (principal)
CPT/HCPCS: 80048; 85027; 85610; 87081

== ENCOUNTER 2020-08-27 10:39 | Inpatient (IN) | payer MEDICARE ==
[2020-08-26 10:57] VITALS: BMI 30.2
[~2020-08-27 10:39] MED LIST: Bupivacaine HCl 0.5%/Epinephrine 1:200,000/PF 30 ml Vial ONE; Dexamethasone 20 MG/5 ML VIAL ONE; Glycopyrrolate 0.2 MG/ML 5 ML SYRINGE ONE; Labetalol HCl 100 MG/20 ML VIAL ONE; Lidocaine 1% PF 5 ML VIAL ONE; Ondansetron PF 4 MG/2 ML Vial ONE; PROPOFOL 200 MG/20 ML VIAL ONE; Rocuronium Bromide 10 MG/ML (10ML VIAL) ONE; Ropivacaine 0.2% HCl/PF (40 MG/20 ML VIAL) ONE
[2020-08-27] MEDS ORDERED: Phenylephrine 10 MG/ML VIAL ONE (11:53)
[2020-08-27] MEDS ORDERED: Fentanyl 100 MCG/2 ML VIAL ONE ×3 (11:53→15:08)
[2020-08-27] MEDS ORDERED: Midazolam HCl 2 mg/2 ml Vial ONE (11:54)
[2020-08-27] MEDS ORDERED: Neomycin-Polymyxin 1 ML AMP ONE (13:08)
[2020-08-27] MEDS ORDERED: Fentanyl 100 MCG/2 ML VIAL IV PRN (13:12)
[2020-08-27] MEDS ORDERED: HYDROcodone/Acetaminophen 10/325 mg Tablet PO PRN (13:15)
[2020-08-27] MEDS ORDERED: Ondansetron PF 4 MG/2 ML Vial IVP PRN (13:15)
[2020-08-27] MEDS ORDERED: Promethazine HCl 25 MG/ML VIAL IM PRN ×2 (13:15→15:00)
[2020-08-27] MEDS ORDERED: Ropivacaine HCl/PF 250 ML in Premix Bag 1 BAG NERVE BLCK SCH (13:15)
[2020-08-27] MEDS ORDERED: traMADol HCl 50 MG TAB PO PRN ×2 (13:15)
[2020-08-27] MEDS ORDERED: Zolpidem Tartrate 5 MG TAB PO PRN ×2 (13:15→15:00)
[2020-08-27] MEDS ORDERED: SUGAMMADEX SODIUM 200 MG/2 ML VIAL ONE (13:33)
[2020-08-27] MEDS ORDERED: HYDROmorphone 2 MG/ML VIAL ONE (14:03)
[2020-08-27] MEDS ORDERED: Acetaminophen 325 MG TAB PO PRN (15:00)
[2020-08-27] MEDS ORDERED: diphenhydrAMINE 25 MG CAP PO PRN (15:00)
[2020-08-27] MEDS ORDERED: Morphine 4 MG/ML VIAL SLOW IVP PRN (15:00)
[2020-08-27] MEDS ORDERED: Morphine 2 MG/ML VIAL SLOW IVP PRN (15:00)
--- NOTE | 2020-08-27 15:23 | RAD ---
Exam:2 views left HISTORY: Left knee arthroplasty COMPARISON: None FINDINGS: Findings compatible with left knee arthroplasty. Expected postoperative changes. IMPRESSION: Left knee arthroplasty.
[2020-08-27] MEDS ORDERED: Albuterol Sulfate 2.5 mg/3 ml Neb NEB PRN (16:53)
--- NOTE | 2020-08-27 17:17 | OP ---
DATE OF PROCEDURE: 08/27/2020 PREOPERATIVE DIAGNOSIS: Severe arthritis, left knee. POSTOPERATIVE DIAGNOSIS: Severe arthritis, left knee. PROCEDURE PERFORMED: Left total knee replacement. ANESTHESIA: General. DESCRIPTION OF PROCEDURE: The patient had a block performed by Anesthesia prior to surgery. She was given preoperative IV antibiotics, taken to the operating room, placed in supine position. Satisfactory general anesthesia was performed. The left lower extremity was sterilely prepped and draped in usual fashion. After exsanguination, tourniquet at the proximal left thigh was raised to 250 mmHg. A longitudinal incision was made over the anterior aspect of the left knee. A medial parapatellar arthrotomy was performed. The patient was noted to have severe arthritis in the medial compartment as well as the patellofemoral joint and mild arthritic changes in the lateral compartment. The anterior cruciate ligament, medial and lateral menisci were excised and the distal aspect of the femur was cut, removing 10 mm at a 5-degree valgus angle. The proximal tibia was then cut, removing 4 mm off the most affected medial compartment. The proximal tibia was measured as a size 5 and the proximal tibia was then prepped for the finned base plate. The distal femur was measured as a size 5. The femur was then cut using the distal femoral cutting guide and the anterior, posterior, and chamfer cuts were made. All the excess spurring was removed from around the distal femur. The trial was inserted over the distal femur, had excellent fit and holes were made for the femoral stems. The trial tibial base plate was inserted along with 10 mm poly and this allowed for full extension of the knee with good flexion and good stability in both flexion and extension. The trials were removed and the undersurface of the patella was cut and then measured as a 32 mm diameter patella. Three holes were made for the patella. The knee joint was then copiously irrigated with antibiotic solution using the high-speed gunner mate. Methylmethacrylate was mixed and initially the proximal finned base plate, size 5 left was cemented into place. The 10 mm tibial insert was locked into the base plate. The nonporous size 5 left femoral component was cemented onto the distal femur. This was used instead of the bony ingrowth because the bone was quite osteoporotic and required the additional strength of the bone cement. Knee was placed into full extension. Excess methylmethacrylate was removed and the Tri-Peg 32 mm diameter patella was cemented into place. Cement was allowed to harden. The knee joint was copiously irrigated with Pulsavac again and again was checked for good stability and range of motion. The knee joint was then closed using #2 Vicryl for the retinacular tissue, 0 Vicryl for the fat and subcutaneous tissues, and skin was closed skin blas. Sterile dressing was applied. The tourniquet was released. The patient was awakened and transferred to recovery room in stable condition. ESTIMATED BLOOD LOSS: None. COMPLICATIONS: None. TOURNIQUET TIME: 67 minutes. Job ID: [id number]
[2020-08-27] MEDS: Ondansetron PF 4 MG/2 ML Vial IVP PRN (17:35)
[2020-08-27] MEDS: Ketorolac Tromethamine 30 MG/ML VIAL IVP SCH (17:41)
[2020-08-27] MEDS: Sodium Chloride 0.9% 1,000 ML IV SCH (17:42)
--- NOTE | 2020-08-27 19:41 | CON ---
DATE OF CONSULTATION: PRIMARY CARE PHYSICIAN: Felton Hernandez. CHIEF COMPLAINT: Left knee pain. HISTORY OF PRESENT ILLNESS: The patient is a 70-year-old female presented today for an elective total knee replacement with Dr. Son. We were consulted for medical management of this patient. She currently has no complaints. PAST MEDICAL HISTORY: Hypertension, hyperlipidemia, CAD, atrial fibrillation, CA, asthma induced by medications, arthritis. PAST SURGICAL HISTORY: Carotid endarterectomy, left knee arthroscopy, CABG. ALLERGIES: CIPRO, ERYTHROMYCIN, BACTRIM, CHLORHEXIDINE, AND ADHESIVES. MEDICATIONS: 1. Asmanex two puffs inhaled as needed. 2. Albuterol two puffs inhaled as needed. 3. Metoprolol succinate 25 mg p.o. q.a.m. 4. Aspirin 81 mg p.o. daily. 5. Atorvastatin 10 mg p.o. daily. 6. Prilosec OTC p.o. daily. 7. Meloxicam 15 mg p.o. daily. 8. Claritin 10 mg p.o. daily. SOCIAL HISTORY: The patient lives at home. Denies any drinking, smoking, or alcohol. FAMILY HISTORY: Noncontributory to this visit. REVIEW OF SYSTEMS: The patient complaining of nausea. All other review of systems negative. PHYSICAL EXAMINATION: VITAL SIGNS: Pulse 62, blood pressure 151/70, respiratory rate 16, temp 95.5. GENERAL: The patient is slightly hypertensive. No acute distress. HEENT: Head; atraumatic, normocephalic. Eyes, PERRLA. Extraocular muscles intact. RESPIRATORY: Clear to auscultation bilaterally. No rhonchi, no wheezes, no rales. CARDIOVASCULAR: Regular rate and rhythm. No murmurs, no rubs, no gallops. ABDOMEN: Bowel sounds normal. No distention. No guarding. EXTREMITIES: No edema. No cyanosis. Left knee wrapped in bandage with nerve block in place. PSYCH: Normal affect, normal behavior. LABS: Labs were completed on 08/22/2020. White blood cells 9.7, hemoglobin 13.6, hematocrit 43.5. Sodium 141, potassium 4.3, chloride 104, carbon dioxide 29, creatinine 0.75, GFR 76. IMPRESSION AND PLAN: The patient with a total knee replacement, consulted for medical management. The patient has a history of hypertension, hyperlipidemia, coronary artery disease, and atrial fibrillation. Preop EKG in the chart shows normal sinus rhythm at 74 beats per minute. The patient continued on her hypertensive medication by Dr. Son along with other home medications. We will continue to monitor vital signs q.4 hours and follow patient while in the hospital with any needs she may have. The patient is a full code currently. The patient has been discussed with Dr. Alexander. Job ID: [id number]
[2020-08-27] MEDS ORDERED: PROVENTIL INHALER 6.7 G (200 INHALATIONS) INH PRN (20:02)
[2020-08-27] MEDS: CEFAZOLIN 2 GM in Premix Bag 1 BAG IVPB SCH (20:10)
[2020-08-27] MEDS: Aspirin 81 mg Enteric Coated Tablet PO SCH (20:11)
[2020-08-27] MEDS: Atorvastatin Calcium 10 MG TAB PO SCH (20:11)
[2020-08-27] MEDS: Ferrous Gluconate 324 MG TAB PO SCH (20:11)
[2020-08-27] MEDS: Senokot S 8.6-50 MG TAB PO SCH (20:11)
[2020-08-28] MEDS: Sodium Chloride 0.9% 1,000 ML IV SCH ×3 (00:05→22:23)
[2020-08-28] MEDS: HYDROcodone/Acetaminophen 10/325 mg Tablet PO PRN (00:11)
[2020-08-28] MEDS: Ketorolac Tromethamine 30 MG/ML VIAL IVP SCH ×5 (00:11→22:25)
[2020-08-28] MEDS: CEFAZOLIN 2 GM in Premix Bag 1 BAG IVPB SCH (04:14)
[2020-08-28] MEDS: Ondansetron PF 4 MG/2 ML Vial IVP PRN (04:55)
[2020-08-28 05:57] LABS: #Lymphocytes 1.1 thou/uL (1.20-3.40); #Neutrophils 10.9 thou/uL (1.40-6.50); %Basophils 0.2 % (0.0-1.0); %Eosinophils 0.1 % (0.0-10.0); %Lymphocytes 8.3 % (21.0-51.0); %Monocytes 7.8 % (0.0-10.0); %Neutrophils 83.7 % (42.0-75.0); Hemoglobin 11.5 g/dL (12.0-16.0); Mean Corpuscular Hemoglobin 30.7 pg (27.0-31.0); Mean Corpuscular Volume 95.9 fL (78.0-98.0); Mean Platelet Volume 8.3 fL (7.4-10.4); Platelet Count 268 thou/uL (130-400); RBC Distribution Width 12.2 % (11.5-14.5); Red Blood Cell (RBC) Count 3.73 mill/uL (4.20-5.40)
[2020-08-28 06:17] LABS: Anion Gap 14 mmol/L (10-20); BUN (Urea Nitrogen) 18 mg/dL (9.8-20.1); Calc. Creatinine Clearance 72 mL/min (70-130); Calcium 8.9 mg/dL (7.8-10.44); Carbon Dioxide 25 mmol/L (23-31); Chloride 102 mmol/L (98-107); Estimated GFR-MDRD 73; Glucose 123 mg/dL (83-110); Potassium 4.5 mmol/L (3.5-5.1); Sodium 136 mmol/L (136-145)
[2020-08-28] MEDS ORDERED: Labetalol HCl 100 MG/20 ML VIAL SLOW IVP PRN (08:36)
[2020-08-28] MEDS: Senokot S 8.6-50 MG TAB PO SCH ×2 (08:48→20:23)
[2020-08-28] MEDS: Aspirin 81 mg Enteric Coated Tablet PO SCH ×2 (08:48→20:23)
[2020-08-28] MEDS: Multivitamin W/ Minerals 1 TAB PO SCH (08:49)
[2020-08-28] MEDS: Ferrous Gluconate 324 MG TAB PO SCH ×2 (08:49→20:23)
[2020-08-28] MEDS: Loratadine 10 MG TAB PO SCH (08:50)
--- NOTE | 2020-08-28 10:22 | PRG ---
DATE OF SERVICE: 08/28/2020 SUBJECTIVE: Ms. Antonio is 1-day status post left total knee replacement. The patient states that she had nausea and vomiting this morning. She has not worked with physical therapy yet. Overall, she feels that the block given by anesthesia is working fairly well. OBJECTIVE: The patient has been afebrile. Vital signs are stable. The left lower extremity has some numbness from the block, but otherwise it is neurovascularly intact. The patient is able to dorsiflex, plantar flex the ankle well, has good flexion-extension of the toes. Good peripheral pulses. LABORATORY DATA: Shows white count 13, hemoglobin 11.5, hematocrit 35.8. PLAN: The patient needs to work with physical therapy, to be able to demonstrate independence on getting in and out of bed and ambulating. She is requiring IV pain medication as well as IV antiemetics. She needs to stay in the hospital until she is much more stable, possible discharge tomorrow. Job ID: [id number]
[2020-08-28] MEDS ORDERED: Calcium Carbonate 500 MG ChewTAB PO PRN (11:39)
[2020-08-28] MEDS ORDERED: Mag-Al 1200 mg/1200 mg/30 ML UDCUP PO PRN (11:39)
[2020-08-28] MEDS ORDERED: Polyethylene Glycol 3350 17 GM Packet PO PRN (15:13)
--- NOTE | 2020-08-28 15:13 | PDOC.HOSPP ---
- Subjective Encounter Date: 08/28/20 Encounter Time: 10:00 Subjective: Patient seen and examined for medical management. Some heartburn. Denies any chest pain, palpitations, fever or chills. No other complaints. - Objective Vital Signs & Weight: Vital Signs (12 hours) Temp Pulse Resp BP Pulse Ox 08/28/20 11:44 96.8 F L 69 18 118/59 L 95 08/28/20 09:10 95 08/28/20 08:28 98.7 F 64 18 141/65 H 95 08/28/20 04:17 96.4 F L 66 16 127/61 94 L Weight Weight 155 lb I&O: 08/27/20 08/28/20 08/29/20 06:59 06:59 06:59 Intake Total 970 440 Output Total 200 Balance 770 440 Result Diagrams: 08/28/20 05:33 08/28/20 05:33 Radiology Reviewed by me: Yes (Knee x-rayreviewed) Hospitalist ROS - Review of Systems Respiratory: denies: cough, dry, shortness of breath, hemoptysis, SOB with excertion, pleuritic pain, sputum, wheezing, other Cardiovascular: denies: chest pain, palpitations, orthopnea, paroxysmal noc. dyspnea, edema, light headedness, other - Medication Medications: Active Medications Generic Name Dose Route Start Last Admin Trade Name Freq PRN Reason Stop Dose Admin Acetaminophen 650 mg 08/27/20 15:00 08/27/20 22:39 Acetaminophen 325 Mg Tab PO 650 mg Q4H PRN Administration Headache/Fever or Pain Hydrocodone Bitart/Acetaminophen 2 tab 08/27/20 13:15 08/28/20 00:11 Hydrocodone/Acetaminophen 10/325 Mg Tablet PO 2 tab Q4H PRN Administration PAIN (4-6) Aspirin 81 mg 08/27/20 21:00 08/28/20 08:48 Aspirin 81 Mg Enteric Coated Tablet PO 81 mg BID MARCO ANTONIO Administration Atorvastatin Calcium 10 mg 08/27/20 21:00 08/27/20 20:11 Atorvastatin Calcium 10 Mg Tab PO 10 mg HS MARCO ANTONIO Administration Ferrous Gluconate 324 mg 08/27/20 21:00 08/28/20 08:49 Ferrous Gluconate 324 Mg Tab PO 324 mg BID MARCO ANTONIO Administration Sodium Chloride 1,000 mls @ 100 mls/hr 08/27/20 15:00 08/28/20 11:10 Normal Saline 0.9% IV Not Given .Q10H MARCO ANTONIO Iron/Minerals/Multivitamins 1 tab 08/28/20 09:00 08/28/20 08:49 Multivitamin W/ Minerals 1 Tab PO 1 tab DAILY MARCO ANTONIO Administration Ketorolac Tromethamine 15 mg 08/27/20 18:00 08/28/20 11:19 Ketorolac Tromethamine 30 Mg/Ml Vial IVP 08/29/20 12:01 15 mg Q6HR MARCO ANTONIO Administration Loratadine 10 mg 08/28/20 09:00 08/28/20 08:50 Loratadine 10 Mg Tab PO 10 mg DAILY MARCO ANTONIO Administration Metoprolol Succinate 25 mg 08/28/20 09:00 08/28/20 08:48 Metoprolol Succinate Xl 25 Mg Tab PO 25 mg DAILY MARCO ANTONIO Administration Ondansetron HCl 4 mg 08/27/20 15:00 08/28/20 04:55 Ondansetron Pf 4 Mg/2 Ml Vial IVP 4 mg Q6H PRN Administration Nausea/Vomiting Pantoprazole Sodium 40 mg 08/28/20 09:00 08/28/20 08:49 Pantoprazole 40 Mg Tab PO 40 mg DAILY MARCO ANTONIO Administration Senna/Docusate Sodium 2 tab 08/27/20 21:00 08/28/20 08:48 Senokot S 8.6-50 Mg Tab PO Not Given BID MARCO ANTONIO Sodium Chloride 10 ml 08/27/20 21:00 08/28/20 08:50 Flush - Normal Saline 10 Ml Syringe IVF 10 ml Q12HR MARCO ANTONIO Administration - Exam General Appearance: NAD Heart: RRR, no gallops Respiratory: no wheezes, no ronchi Gastrointestinal: non-tender, non-distended Extremities: no cyanosis Neurological: no new deficit Hosp A/P - Plan DVT proph w/SCDs Hypertension Coronary artery disease status post CABG Hyperlipidemia Paroxysmal atrial fibrillation Mild intermittent asthma GERD Seasonal allergies History of carotid artery disease Degenerative joint disease CKD stage II Plan: Continue Lipitor, Toprol-XL 25 mg daily with PPIs. Add Maalox and Tums for heartburn. Continue Senokot-S. Continue albuterol inhaler as needed. Continue aspirin continue other medications as above. Continue physical therapy. Continue incentive spirometry. Continue supportive care. Pain control. Continue heart healthy diet
[2020-08-28] MEDS: Atorvastatin Calcium 10 MG TAB PO SCH (20:23)
[2020-08-29 05:22] LABS: Hemoglobin 9.6 g/dL (12.0-16.0); Mean Corpuscular HGB CONC 33.1 g/dL (32.0-36.0); Mean Corpuscular Hemoglobin 30.8 pg (27.0-31.0); Mean Corpuscular Volume 93.2 fL (78.0-98.0); Mean Platelet Volume 8.1 fL (7.4-10.4); Platelet Count 224 thou/uL (130-400); RBC Distribution Width 12.3 % (11.5-14.5); White Blood Cell (WBC) Count 8.9 thou/uL (4.8-10.8)
[2020-08-29] MEDS: Ketorolac Tromethamine 30 MG/ML VIAL IVP SCH ×2 (06:07→12:16)
[2020-08-29] MEDS: Sodium Chloride 0.9% 1,000 ML IV SCH ×2 (06:32→15:17)
[2020-08-29] MEDS: Multivitamin W/ Minerals 1 TAB PO SCH ×2 (08:22→08:32)
[2020-08-29] MEDS: Senokot S 8.6-50 MG TAB PO SCH (08:22)
[2020-08-29] MEDS: Ferrous Gluconate 324 MG TAB PO SCH (08:23)
[2020-08-29] MEDS: Loratadine 10 MG TAB PO SCH (08:23)
[2020-08-29] MEDS: Aspirin 81 mg Enteric Coated Tablet PO SCH (08:23)
[2020-08-29] MEDS: HYDROcodone/Acetaminophen 10/325 mg Tablet PO PRN (09:58)
--- NOTE | 2020-08-29 14:50 | PDOC.HOSPP ---
- Subjective Encounter Date: 08/29/20 Encounter Time: 08:30 Subjective: Patient seen and examined for medical management. Pain controlled. Denies any chest pain, shortness of breath or palpitations. No fever or chills. - Objective Vital Signs & Weight: Vital Signs (12 hours) Temp Pulse Resp BP Pulse Ox 08/29/20 12:15 96.4 F L 62 18 141/63 H 96 08/29/20 09:30 95 08/29/20 08:27 98.5 F 65 16 135/62 95 Weight Weight 155 lb I&O: 08/28/20 08/29/20 08/30/20 06:59 06:59 06:59 Intake Total 970 935 460 Output Total 200 Balance 770 935 460 Result Diagrams: 08/29/20 05:05 08/28/20 05:33 Hospitalist ROS - Review of Systems Cardiovascular: denies: chest pain, palpitations, orthopnea, paroxysmal noc. dyspnea, edema, light headedness, other Gastrointestinal: denies: nausea, vomiting, abdominal pain, diarrhea, constipation, melena, hematochezia, other - Medication Medications: Active Medications Generic Name Dose Route Start Last Admin Trade Name Freq PRN Reason Stop Dose Admin Acetaminophen 650 mg 08/27/20 15:00 08/27/20 22:39 Acetaminophen 325 Mg Tab PO 650 mg Q4H PRN Administration Headache/Fever or Pain Hydrocodone Bitart/Acetaminophen 1 tab 08/27/20 13:15 08/28/20 22:25 Hydrocodone/Acetaminophen 10/325 Mg Tablet PO 1 tab Q4H PRN Administration Pain (1-3) Hydrocodone Bitart/Acetaminophen 2 tab 08/27/20 13:15 08/29/20 09:58 Hydrocodone/Acetaminophen 10/325 Mg Tablet PO 2 tab Q4H PRN Administration PAIN (4-6) Aspirin 81 mg 08/27/20 21:00 08/29/20 08:23 Aspirin 81 Mg Enteric Coated Tablet PO 81 mg BID MARCO ANTONIO Administration Atorvastatin Calcium 10 mg 08/27/20 21:00 08/28/20 20:23 Atorvastatin Calcium 10 Mg Tab PO 10 mg HS MARCO ANTONIO Administration Ferrous Gluconate 324 mg 08/27/20 21:00 08/29/20 08:23 Ferrous Gluconate 324 Mg Tab PO 324 mg BID MARCO ANTONIO Administration Sodium Chloride 1,000 mls @ 100 mls/hr 08/27/20 15:00 08/29/20 06:32 Normal Saline 0.9% IV Not Given .Q10H MARCO ANTONIO Iron/Minerals/Multivitamins 1 tab 08/28/20 09:00 08/29/20 08:32 Multivitamin W/ Minerals 1 Tab PO 1 tab DAILY MARCO ANTONIO Administration Loratadine 10 mg 08/28/20 09:00 08/29/20 08:23 Loratadine 10 Mg Tab PO 10 mg DAILY MARCO ANTONIO Administration Metoprolol Succinate 25 mg 08/28/20 09:00 08/29/20 08:23 Metoprolol Succinate Xl 25 Mg Tab PO 25 mg DAILY MARCO ANTONIO Administration Ondansetron HCl 4 mg 08/27/20 15:00 08/28/20 04:55 Ondansetron Pf 4 Mg/2 Ml Vial IVP 4 mg Q6H PRN Administration Nausea/Vomiting Pantoprazole Sodium 40 mg 08/29/20 09:00 08/29/20 08:23 Pantoprazole 40 Mg Tab PO 40 mg DAILY MARCO ANTONIO Administration Senna/Docusate Sodium 2 tab 08/27/20 21:00 08/29/20 08:22 Senokot S 8.6-50 Mg Tab PO 2 tab BID MARCO ANTONIO Administration Sodium Chloride 10 ml 08/27/20 21:00 08/29/20 08:24 Flush - Normal Saline 10 Ml Syringe IVF 10 ml Q12HR MARCO ANTONIO Administration - Exam General Appearance: NAD Heart: RRR, no gallops Respiratory: no wheezes, no ronchi Gastrointestinal: soft, non-distended Extremities: no cyanosis Neurological: no new deficit Hosp A/P - Plan DVT proph w/SCDs Hypertension Coronary artery disease status post CABG Hyperlipidemia Paroxysmal atrial fibrillation Mild intermittent asthma GERD Seasonal allergies History of carotid artery disease Degenerative joint disease CKD stage II Plan: Continue PPIs. Continue Lipitor. Continue Toprol-XL and other medications as above. DVT prophylaxis. Continue incentive spirometer. Continue physical therapy.
[2020-08-29 16:41] VITALS: BP 117/59; TEMP 96.2
--- NOTE | 2020-08-29 18:08 | DIS ---
DATE OF ADMISSION: 08/27/2020 DATE OF DISCHARGE: 08/29/2020 HISTORY OF PRESENT ILLNESS: Please see admission history and physical. HOSPITAL COURSE: The patient was worked up medically prior to admission, found to be stable for surgery. On the day of admission, the patient was given perioperative IV antibiotics, taken to the operating room and under general anesthetic, underwent a left total knee replacement. The patient started physical therapy the following day and by the date of discharge, she was able to independently get out of bed and ambulate with a walker. The patient had an indwelling pain catheter performed by Anesthesia, which gave her good pain relief. The patient remained afebrile. Vital signs remained stable. Her laboratory showed that hemoglobin the day after surgery was 11.5 and second day was 9.6. The dressing was changed. The incision was healing well and the Aquacel was placed over the left knee incision. DISCHARGE DIAGNOSIS: Severe arthritis of left knee, requiring total knee replacement. DISCHARGE MEDICATION: The patient will continue with her previous home medication. She will take aspirin 81 mg daily and I wrote a prescription for Moss 10 one every 6 hours as needed for pain #40. FOLLOWUP: Follow up in my office in 2 weeks. Job ID: [id number]
== END 2020-08-29 16:50 | disposition home or self-care (01) | DRG 470 ==
LOC: SDC 10:39 → SJJU 15:00
PROVIDERS: ADMIT Orthopaedic Surgery; ATTEND Orthopaedic Surgery
PROC: 0SRD0J9 Replacement of Left Knee Joint with Synthetic Substitute, Cemented, Open Approach (ICD-10-PCS; principal; 2020-08-27)
DX: M17.12 Unilateral primary osteoarthritis, left knee (principal); E78.5 Hyperlipidemia, unspecified; I25.10 Atherosclerotic heart disease of native coronary artery without angina pectoris; N18.2 Chronic kidney disease, stage 2 (mild); K21.9 Gastro-esophageal reflux disease without esophagitis; I48.0 Paroxysmal atrial fibrillation; J45.20 Mild intermittent asthma, uncomplicated; I12.9 Hypertensive chronic kidney disease with stage 1 through stage 4 chronic kidney disease, or unspecified chronic kidney disease; M19.90 Unspecified osteoarthritis, unspecified site; Z88.1 Allergy status to other antibiotic agents; Z88.8 Allergy status to other drugs, medicaments and biological substances; Z95.1 Presence of aortocoronary bypass graft; Z79.82 Long term (current) use of aspirin; Z79.51 Long term (current) use of inhaled steroids; Z79.899 Other long term (current) drug therapy; I25.2 Old myocardial infarction; Z88.2 Allergy status to sulfonamides
CPT/HCPCS: 36415; 80048; 85027; C1713; C1776; J0690; J1100; J1170; J1885; J2250; J2370; J2405; J2704; J2795; J3010

== ENCOUNTER 2021-06-26 13:18 | Outpatient (CLI) | payer MEDICARE ==
[2021-06-26 14:44] LABS: #Basophils 0.1 10x3/uL (0.0-0.2); #Eosinphils 0.7 10x3/uL (0.0-0.5); #Monocytes 0.5 10x3/uL (0.0-1.1); %Eosinophils 8.8 % (0.0-6.0); %Lymphocytes 23.9 % (18.0-47.0); %Monocytes 6.1 % (0.0-10.0); Hemoglobin 13.8 g/dL (12.0-15.5); Mean Corpuscular Hemoglobin 28.2 pg (27.0-33.0); Mean Corpuscular Volume 88.1 fl (81.6-98.3); Mean Platelet Volume 11.1 fl (7.4-10.4); Platelet Count 365 10x3/uL (150-450); RBC Distribution Width 13.4 % (11.5-14.5); Red Blood Cell (RBC) Count 4.89 10x6/uL (3.90-5.03); White Blood Cell (WBC) Count 8.4 10x3/uL (3.5-10.5)
[2021-06-26 15:03] LABS: ALT (SGPT) 25 U/L (8-55); AST (SGOT) 22 U/L (5-34); Albumin 3.8 g/dL (3.4-4.8); Alkaline Phosphatase 123 U/L (40-110); Anion Gap 16 mmol/L (10-20); BUN (Urea Nitrogen) 16 mg/dL (9.8-20.1); Bilirubin, Total 0.5 mg/dL (0.2-1.2); Calc. Creatinine Clearance 0 mL/min (70-130); Calcium 9.8 mg/dL (7.8-10.44); Carbon Dioxide 21 mmol/L (23-31); Chloride 107 mmol/L (98-107); Globulin 2.8 g/dL (2.4-3.5); Glucose 117 mg/dL (83-110); Potassium 4.4 mmol/L (3.5-5.1); Protein, Total 6.6 g/dL (5.8-8.1); Sodium 140 mmol/L (136-145)
[2021-06-28 00:17] LABS: SARS-CoV-2 PCR by NAA Not Detected (NotDetected)
== END 2021-06-26 13:19 | disposition home or self-care (01) ==
LOC: LABBT 13:18
PROVIDERS: ATTEND Surgery
DX: Z01.818 Encounter for other preprocedural examination (principal); R22.41 Localized swelling, mass and lump, right lower limb; Z20.822 Contact with and (suspected) exposure to COVID-19
CPT/HCPCS: 80053; 85025; 93005; U0003; U0005; 93010

== ENCOUNTER 2021-07-01 06:07 | Day surgery (SDC) | payer MEDICARE ==
[2021-06-30 10:45] VITALS: BMI 30.2
[2021-07-01] MEDS ORDERED: Lidocaine 1% w/Epinephrine 1:100K 30 ML VIAL ONE (06:43)
[2021-07-01] MEDS ORDERED: Bupivacaine 0.25% HCL 30 ML VIAL ONE (06:43)
[2021-07-01] MEDS ORDERED: Fentanyl 100 MCG/2 ML VIAL ONE (07:03)
[2021-07-01] MEDS ORDERED: Famotidine/PF 20 mg/2ml Vial ONE (07:03)
[2021-07-01] MEDS ORDERED: ceFAZolin 2 GM/Dextrose 50 ML IVPB ONE (07:13)
[2021-07-01] MEDS ORDERED: Dexamethasone 20 MG/5 ML VIAL ONE (08:08)
[2021-07-01] MEDS ORDERED: Ketorolac Tromethamine 30 MG/ML VIAL ONE (08:08)
[2021-07-01] MEDS ORDERED: PROPOFOL 200 MG/20 ML VIAL ONE (08:08)
[2021-07-01] MEDS ORDERED: ePHEDrine 50 MG/ML VIAL ONE (08:08)
[2021-07-01] MEDS ORDERED: Ondansetron PF 4 MG/2 ML Vial ONE (08:08)
[2021-07-01] MEDS ORDERED: Rocuronium Bromide 10 MG/ML (10ML VIAL) ONE (08:08)
[2021-07-01] MEDS ORDERED: Glycopyrrolate 0.2 MG/ML 5 ML SYRINGE ONE (08:08)
[2021-07-01] MEDS ORDERED: Lidocaine 1% PF 5 ML VIAL ONE (08:08)
[2021-07-01] MEDS ORDERED: SUGAMMADEX SODIUM 200 MG/2 ML VIAL ONE (09:01)
[2021-07-01] MEDS ORDERED: Promethazine HCl 25 MG/ML VIAL ONE (10:40)
== END 2021-07-01 11:45 | disposition home or self-care (01) ==
LOC: SDC 06:07
PROVIDERS: ATTEND Surgery
PROC: 0JBL0ZZ Excision of Right Upper Leg Subcutaneous Tissue and Fascia, Open Approach (ICD-10-PCS; principal; 2021-07-01)
DX: R22.41 Localized swelling, mass and lump, right lower limb (principal); E78.00 Pure hypercholesterolemia, unspecified; I10 Essential (primary) hypertension; K21.9 Gastro-esophageal reflux disease without esophagitis; Z79.899 Other long term (current) drug therapy; Z88.1 Allergy status to other antibiotic agents; Z88.2 Allergy status to sulfonamides; Z88.8 Allergy status to other drugs, medicaments and biological substances; Z95.1 Presence of aortocoronary bypass graft
CPT/HCPCS: 88304; J0690; J1100; J1885; J2405; J2550; J2704; J3010; J3490; S0020; S0028

== ENCOUNTER 2021-10-26 13:08 | Outpatient (CLI) | payer MEDICARE | END 2021-10-26 13:09 | disposition home or self-care (01) | LOC: BICMAMMO 13:08 | PROVIDERS: ATTEND Family Medicine | DX: Z12.31 Encounter for screening mammogram for malignant neoplasm of breast (principal); Z91.89 Other specified personal risk factors, not elsewhere classified; Z80.3 Family history of malignant neoplasm of breast | CPT/HCPCS: 77063; 77067 ==

== ENCOUNTER 2022-05-31 08:43 | Outpatient (CLI) | payer MEDICARE ==
[2022-05-31] MEDS ORDERED: Iopamidol 370 76% 100 ML VIAL ONE (15:41)
== END 2022-05-31 08:44 | disposition home or self-care (01) ==
LOC: CT 08:43
PROVIDERS: ATTEND Surgery
DX: M40.209 Unspecified kyphosis, site unspecified (principal); M43.8X4 Other specified deforming dorsopathies, thoracic region
CPT/HCPCS: 72129; 82565; Q9967

== ENCOUNTER 2023-09-21 11:36 | Outpatient (CLI) | payer MEDICARE | END 2023-09-21 11:37 | disposition home or self-care (01) | LOC: SCSRAD 11:36 | PROVIDERS: ATTEND Family Medicine | DX: M54.41 Lumbago with sciatica, right side (principal); M47.816 Spondylosis without myelopathy or radiculopathy, lumbar region; M47.817 Spondylosis without myelopathy or radiculopathy, lumbosacral region; I70.90 Unspecified atherosclerosis; R93.5 Abnormal findings on diagnostic imaging of other abdominal regions, including retroperitoneum | CPT/HCPCS: 72100; 72202 ==

== ENCOUNTER 2023-12-14 12:00 | Outpatient (CLI) | payer MEDICARE | END 2023-12-14 12:01 | disposition home or self-care (01) | LOC: SCSRAD 12:00 | PROVIDERS: ATTEND Family Medicine | DX: R09.89 Other specified symptoms and signs involving the circulatory and respiratory systems (principal) | CPT/HCPCS: 71046 ==

== ENCOUNTER 2024-10-26 12:19 | Outpatient (CLI) | payer MEDICARE ==
[2024-10-26 14:12] LABS: #Basophils 0.06 10x3/uL (0.0-0.2); %Basophils 0.7 % (0.0-1.0); %Monocytes 8.8 % (0.0-10.0); %Neutrophils 56.3 % (42.0-75.0); Hematocrit 40.4 % (36.0-47.0); Hemoglobin 12.7 g/dL (12.0-16.0); Mean Corpuscular HGB CONC 31.4 g/dL (32.0-36.0); Mean Corpuscular Hemoglobin 27.6 pg (27.0-31.0); Mean Corpuscular Volume 87.8 fL (78.0-98.0); Mean Platelet Volume 11.1 fL (7.4-10.4); Platelet Count 324 10x3/uL (130-400)
[2024-10-26 14:22] LABS: Anion Gap 12 mmol/L (10-20); BUN (Urea Nitrogen) 20 mg/dL (9.8-20.1); Calc. Creatinine Clearance 0 mL/min (70-130); Calcium 9.7 mg/dL (7.8-10.44); Carbon Dioxide 26 mmol/L (23-31); Chloride 104 mmol/L (98-107); Estimated GFR 56; Glucose 90 mg/dL (83-110); Potassium 4.5 mmol/L (3.5-5.1); Sodium 137 mmol/L (136-145)
[2024-10-26 14:26] LABS: INR-International Normal Ratio 0.9; Prothrombin Time 12.6 sec (12.0-14.7)
== END 2024-10-26 12:20 | disposition home or self-care (01) ==
LOC: LABBT 12:19
PROVIDERS: ATTEND Orthopaedic Surgery
DX: Z01.818 Encounter for other preprocedural examination (principal); M16.11 Unilateral primary osteoarthritis, right hip
CPT/HCPCS: 80048; 85025; 85610; 87081; 93005; 93010

== ENCOUNTER 2024-10-26 12:30 | Inpatient (IN) | payer MEDICARE ==
[2024-10-30] MEDS ORDERED: CEFAZOLIN 2 GM VIAL ONE (07:08)
[2024-10-30] MEDS ORDERED: Bupivacaine PF 0.5% 30 ML VIAL ONE (07:08)
[2024-10-30] MEDS ORDERED: EPINEPHrine 1 MG/ML VIAL ONE (07:08)
[2024-10-30] MEDS ORDERED: Tranexamic Acid 1,000 MG/10 ML VIAL ONE (07:09)
[2024-10-30] MEDS ORDERED: Lidocaine 1% PF 5 ML VIAL ONE (07:17)
[2024-10-30] MEDS ORDERED: PROPOFOL 20 ML ONE (07:17)
[2024-10-30] MEDS ORDERED: Rocuronium Bromide 10 MG/ML (10ML VIAL) ONE (07:17)
[2024-10-30] MEDS ORDERED: Ondansetron PF 4 MG/2 ML Vial ONE (07:17)
[2024-10-30] MEDS ORDERED: fentaNYL PF 100 MCG/2 ML SYRINGE ONE ×2 (07:17→09:05)
[2024-10-30] MEDS ORDERED: Zolpidem Tartrate 5 MG TAB PO PRN (07:29)
[2024-10-30] MEDS ORDERED: Ondansetron PF 4 MG/2 ML Vial IVP PRN (07:29)
[2024-10-30] MEDS ORDERED: Morphine 2 MG/ML VIAL SLOW IVP PRN (07:29)
[2024-10-30] MEDS ORDERED: Acetaminophen 500 MG TAB PO PRN (07:29)
[2024-10-30] MEDS ORDERED: SUGAMMADEX SODIUM 200 MG/2 ML VIAL ONE (08:38)
[2024-10-30] MEDS ORDERED: ePHEDrine Sulfate 50 MG/10 ML VIAL ONE (08:40)
[2024-10-30] MEDS ORDERED: PSEUDOEPHEDRINE PO SCH (09:00)
[2024-10-30] MEDS ORDERED: Non-Formulary Item 1 EACH (Esomeprazole Magnesium [Nexium] 40 MG Cap) PO SCH (09:00)
[2024-10-30] MEDS ORDERED: Non-Formulary Item 1 EACH (Hydrochlorothiazide [Hydrochlorothiazide] 12.5 MG Tablet) PO SCH (09:00)
[2024-10-30] MEDS ORDERED: LORATADINE PO SCH (09:00)
[2024-10-30] MEDS ORDERED: Non-Formulary Item 1 EACH (Esomeprazole Magnesium [Nexium] 20 MG Capsule.Dr) PO SCH (09:00)
[2024-10-30] MEDS ORDERED: Non-Formulary Item 1 EACH (Levothyroxine Sodium [Levothyroxine Sodium] 50 MCG Capsule) PO SCH (09:00)
[2024-10-30] MEDS ORDERED: [UNRECOGNIZED DRUG - OTHER] PO SCH (09:00)
[2024-10-30] MEDS ORDERED: Non-Formulary Item 1 EACH (Olmesartan Medoxomil [Olmesartan Medoxomil] 40 MG Tablet) PO SCH (09:00)
[2024-10-30] MEDS ORDERED: hydrALAZINE 20 MG/ML VIAL ONE (09:29)
[2024-10-30] MEDS ORDERED: Promethazine HCl 25 MG/ML VIAL ONE (09:36)
[2024-10-30] MEDS: Aspirin 81 mg Enteric Coated Tablet PO SCH (12:08)
[2024-10-30] MEDS: Hydrochlorothiazide 25 MG TAB PO SCH (12:09)
[2024-10-30] MEDS: Losartan 25 MG TAB PO SCH (12:09)
[2024-10-30] MEDS: Pantoprazole 40 MG DR.TAB PO SCH (12:09)
[2024-10-30] MEDS: Metoprolol Succinate XL 25 MG ER.TAB PO SCH (12:09)
[2024-10-30] MEDS: Atorvastatin Calcium 10 MG TAB PO SCH (12:50)
[2024-10-30 14:02] VITALS: BMI 30.6
[2024-10-30] MEDS: CEFAZOLIN 2 GM in Sodium Chloride 0.9% 100 ML IVPB SCH (14:34)
[2024-10-30] MEDS ORDERED: Ipratropium/Albuterol 3 ML NEB NEB PRN (14:36)
[2024-10-30] MEDS: HYDROcodone/Acetaminophen 10/325 mg Tablet PO PRN (15:11)
[2024-10-30] MEDS: Cyclobenzaprine 10 MG TAB PO PRN (15:41)
[2024-10-30] MEDS ORDERED: [UNRECOGNIZED DRUG - OTHER] EA EYE SCH (21:00)
[2024-10-30] MEDS ORDERED: [UNRECOGNIZED DRUG - OTHER] EA EYE SCH (21:00)
[2024-10-31] MEDS: Levothyroxine Sodium 50 MCG TAB PO SCH (05:06)
[2024-10-31 05:30] LABS: Hematocrit 32.2 % (36.0-47.0); Hemoglobin 10.3 g/dL (12.0-16.0); Mean Corpuscular Volume 87.5 fL (78.0-98.0); Mean Platelet Volume 11.1 fL (7.4-10.4); Platelet Count 230 10x3/uL (130-400); RBC Distribution Width 14.6 % (11.5-14.5); Red Blood Cell (RBC) Count 3.68 mill/uL (4.20-5.40)
[2024-10-31] MEDS: Losartan 25 MG TAB PO SCH (08:11)
[2024-10-31] MEDS: Loratadine 10 MG TAB PO SCH (08:11)
[2024-10-31] MEDS: Montelukast Sodium 10 mg Tablet PO SCH (08:11)
[2024-10-31] MEDS: Pseudoephedrine HCl 30 MG TAB PO SCH (08:11)
[2024-10-31] MEDS ORDERED: Loratadine 10 MG TAB PO SCH (09:00)
[2024-10-31] MEDS: Methyl Salicylate/Menthol 85 GM TUBE TOP PRN (16:24)
[2024-10-31] MEDS: HYDROcodone/Acetaminophen 10/325 mg Tablet PO PRN (20:17)
[2024-11-01 09:23] VITALS: BP 98/61; TEMP 98.3
== END 2024-11-01 12:45 | disposition home or self-care (01) | DRG 470 ==
LOC: INTOOBSV 10-30 06:08 → SURG A 10-30 06:08 → SURG B 10-30 10:31 → EDSTATUS 10-30 12:30 → OBSVTOIN 10-30 14:20
PROVIDERS: ADMIT Orthopaedic Surgery; ATTEND Orthopaedic Surgery
PROC: 0SR903A Replacement of Right Hip Joint with Ceramic Synthetic Substitute, Uncemented, Open Approach (ICD-10-PCS; principal; 2024-10-30)
DX: M16.11 Unilateral primary osteoarthritis, right hip (principal); I25.10 Atherosclerotic heart disease of native coronary artery without angina pectoris; I25.2 Old myocardial infarction; Z79.82 Long term (current) use of aspirin
CPT/HCPCS: 36415; 85027; C1713; J0171; J0360; J0665; J2405; J2550; J2704

== ENCOUNTER 2025-06-11 10:15 | Outpatient (CLI) | payer MEDICARE | END 2025-06-11 10:16 | disposition home or self-care (01) | LOC: BICMAMMO 10:15 | PROVIDERS: ATTEND Family Medicine | DX: Z12.31 Encounter for screening mammogram for malignant neoplasm of breast (principal); Z80.3 Family history of malignant neoplasm of breast; Z91.89 Other specified personal risk factors, not elsewhere classified | CPT/HCPCS: 77063; 77067 ==